=== PATIENT | male | born 1970 | race Caucasian/White ===

== ENCOUNTER → 2016-11-29 | Outpatient (CLI) | payer OTHER ==
--- NOTE | 2016-11-29 17:28 | XR ---
EXAMINATION TYPE: XR abdomen 2V DATE OF EXAM: 11/29/2016 5:12 PM COMPARISON: NONE HISTORY: Pain TECHNIQUE: Single supine KUB image of the abdomen is obtained FINDINGS: Small bowel demonstrates no evidence for dilatation or air fluid levels. Gas and fecal material is seen in non-distended colon. No convincing evidence for pneumoperitoneum. No unusual calcifications. The lung bases are clear. The osseous structures are intact. IMPRESSION: 1. Overall nonobstructive bowel gas pattern.
--- NOTE | 2016-11-29 17:30 | XR ---
EXAMINATION TYPE: XR chest 2V DATE OF EXAM: 11/29/2016 5:12 PM COMPARISON: NONE HISTORY: Chest pain TECHNIQUE: Frontal and lateral views of the chest are obtained. FINDINGS: There is no focal air space opacity. No evidence for pnuemothorax.No pleural effusion. The cardiac silhouette size is within normal limits. The osseous structures are grossly intact. IMPRESSION: 1. No acute cardiopulmonary process.
== END | disposition home or self-care (01) ==
LOC: RADXRMAIN 16:47
PROVIDERS: ATTEND Emergency Medicine
DX: K46.9 Unspecified abdominal hernia without obstruction or gangrene (principal); R06.02 Shortness of breath
CPT/HCPCS: 71020; 74020

== ENCOUNTER → 2016-12-22 | Outpatient (CLI) | payer OTHER ==
--- NOTE | 2016-12-22 14:50 | CT ---
EXAMINATION TYPE: CT abdomen pelvis w con DATE OF EXAM: 12/22/2016 COMPARISON: NONE HISTORY: Ventral hernia per order. Umbilical hernia per patient. CT DLP: 1822 mGycm, Automated Exposure Control for Dose Reduction was Utilized. CONTRAST: CT scan of the abdomen and pelvis is performed with oral and with IV Contrast, patient injected with 100 mL of Omnipaque 300. FINDINGS: LUNG BASES: No significant abnormality is appreciated. LIVER/GB: Liver is diffusely low dense consistent with diffuse fatty infiltration. PANCREAS: No significant abnormality is seen. SPLEEN: No significant abnormality is seen. ADRENALS: No significant abnormality is seen. KIDNEYS: No significant abnormality is seen. BOWEL: Some diverticula in the distal colon are present. No acute diverticulitis is seen. PROSTATE/SEMINAL VESICLES: Left-sided pelvic phlebolith is noted. LYMPH NODES: No greater than 1cm abdominal or pelvic lymph nodes are appreciated. There are slightly prominent but subcentimeter lymph nodes scattered throughout the retroperitoneum. OSSEOUS STRUCTURES: There is moderate to severe disc space narrowing with vacuum disc phenomenon L4-L 5 level. There is slight grade 1 retrolisthesis of L5 on S1. There is moderate disc space narrowing a nd vacuum disc phenomenon L5-S1 level. OTHER: There is small fat-containing umbilical hernia on axial image 59. No additional hernia is evid ent. IMPRESSION: Small fat-containing umbilical hernia.
== END | disposition home or self-care (01) ==
LOC: RADCTMAIN 12:11
PROVIDERS: ATTEND Surgery
DX: K42.9 Umbilical hernia without obstruction or gangrene (principal)
CPT/HCPCS: 74177; Q9967

== ENCOUNTER → 2017-01-10 | Day surgery (SDC) | payer OTHER ==
[2017-01-09 11:49] VITALS: BMI 34.0
[~2017-01-10] MED LIST: BUPIVACAIN-EPI 0.5%-1:200,000 30 ML VIAL SQ ONE; DEXAMETHASONE SOD PHOSPHATE 10 MG/ML 1 ML VIAL IV ONE; GLYCOPYRROLATE 0.2 MG/ML 2 ML VIAL ONE; HEPARIN SODIUM,PORCINE 5,000 UNIT/ML 1 ML VIAL SQ ONE; KETOROLAC 30 MG/ML 1 ML VIAL ONE; LACTATED RINGERS 1,000 ML IV ONE; LACTATED RINGERS 1,000 ML IV SCH; LIDOCAINE 1% 20 ML VIAL (10MG/ML) FOR IV START INTRADERMA PRN; LIDOCAINE 1% INJ 10MG/ML (20 ML MDV) ONE; MIDAZOLAM 2 MG/2 ML VIAL IV PRN; MIDAZOLAM 2 MG/2 ML VIAL ONE; NEOSTIGMINE 1 MG/ML 10 ML VIAL ONE; ONDANSETRON 4 MG/2 ML VIAL IVP ONE; PROPOFOL 10 MG/ML 20 ML VIAL IV ONE; ROCURONIUM BROMIDE 10 MG/ML 10 ML VIAL IV ONE; SCOPOLAMINE 1.5MG/72HR PATCH TRANSDERM ONE; SUCCINYLCHOLINE CHLORIDE VIAL 200 MG/10 ML VIAL IV ONE; fentaNYL (PF) 50 MCG/ML 2 ML AMP ONE
--- NOTE | 2017-01-10 14:38 | P.GSHP ---
History of Present Illness H&P Date: 01/10/17 Chief Complaint: Umbilical hernia Is a 46-year-old male who presents today for laparoscopic robotic system repair hernia. Patient has developed pain at his umbilicus. He underwent CAT scan which shows a small umbilical hernia. Past Medical History Past Medical History: No Reported History Additional Past Medical History / Comment(s): UMBILICAL HERNIA History of Any Multi-Drug Resistant Organisms: None Reported Past Surgical History: No Surgical Hx Reported Additional Past Anesthesia/Blood Transfusion Reaction / Comment(s): HAS NEVER RECEIVED ANESTHESIA.,. PTS SON HAD DIFFICULTY WAKING UP AND WAS AGGRESIVE . Past Psychological History: No Psychological Hx Reported Smoking Status: Never smoker Past Alcohol Use History: Occasional Past Drug Use History: None Reported - Past Family History Mother Family Medical History: Cancer Additional Family Medical History / Comment(s): BREAST CANCER Father Family Medical History: Cancer Additional Family Medical History / Comment(s): PROSTATE CANCER Sister(s) Family Medical History: Cancer Additional Family Medical History / Comment(s): 1 SISTER PASSED WITH OVARIAN CANCER. 1 SISTER HAD BREAST CANCER. Medications and Allergies Home Medications Medication Instructions Recorded Confirmed Type No Known Home Medications [No 01/09/17 01/10/17 History Known Home Medications] Allergies Allergy/AdvReac Type Severity Reaction Status Date / Time amoxicillin Allergy Unknown Unknown Verified 01/10/17 14:01 Childhood Penicillins Allergy Unknown Unknown Verified 01/10/17 14:01 Childhood Surgical - Exam Vital Signs Temp Pulse Resp BP Pulse Ox 98.8 F 83 16 146/92 98 01/10/17 14:07 01/10/17 14:07 01/10/17 14:07 01/10/17 14:07 01/10/17 14:07 - General well developed, no distress - Eyes PERRL - ENT normal pinna - Neck no masses - Respiratory normal expansion - Cardiovascular Rhythm: regular - Abdomen Abdomen: soft, non tender Hernia: umbilical (Small local hernia. Patient has diastases recti muscles.) Assessment and Plan Plan: Umbilical hernia. We'll perform laparoscopic robotic assistance repair.
[2017-01-10] MEDS: ceFAZolin 3 GM in SODIUM CHLORIDE 0.9% 100 ML IVPB ONE ×2 (15:01→15:14)
--- NOTE | 2017-01-10 16:10 | P.OP ---
Date of Procedure: 01/10/17 Preoperative Diagnosis: Umbilical hernia Postoperative Diagnosis: Umbilical hernia, incarcerated fat Procedure(s) Performed: Laparoscopic robotic-assisted repair of incarcerated umbilical hernia Implants: Anesthesia: ITAA Surgeon: Macho Blanco Estimated Blood Loss (ml): 5 Pathology: other (Incarcerated fat) Condition: stable Disposition: PACU Indications for Procedure: Operative Findings: Description of Procedure: The patient's placed on the operating table in the supine position. He received general anesthesia. His abdomen was prepped and draped usual fashion. The skin incision sites were anesthetized 1% local Xylocaine. Using a 5 mm optical trocar peritoneal cavity is entered in the left quadrant. After adequate insufflation the laparoscope placed back peritoneal cavity. Next a 8 mm robotic trochars placed in the left lower quadrant and then a 12 mm trochars placed left lateral position and another 8 mm trocar was placed in the initial 5 mm trocar site. The patient's placed in the head up left side up position. And then the umbilical hernia was visualized. The patient was docked to the robot. Using the hook cautery the incarcerated fat was reduced from the hernia. And then the fascial defect was closed using oh the lock suture. The hernia repair was then buttressed using a ventral light ST mesh and this was secured with 2 OV lock suture. The patient was undocked the robot. The views were retrieved. And then the incarcerated fat was removed and sent to pathology. The 12 mm trocar site was closed with 0 Ethibond suture. Skin was closed with interrupted 3-0 Monocryl suture. Dermabond was applied. Patient tolerated the procedure well and was will was sent to recovery in stable condition.
[2017-01-10 16:22] VITALS: TEMP 97.2
[2017-01-10] MEDS: HYDROmorphone 1 MG/ML 1 ML SYRINGE IVP PRN ×2 (16:25→16:30)
[2017-01-10 16:54] VITALS: RESP 18
[2017-01-10 17:23] VITALS: BP 114/67; PULSE 72
== END | disposition home or self-care (01) ==
LOC: OR 13:33
PROVIDERS: ATTEND Surgery
DX: K42.0 Umbilical hernia with obstruction, without gangrene (principal); I10 Essential (primary) hypertension; E66.9 Obesity, unspecified; Z88.1 Allergy status to other antibiotic agents; Z88.0 Allergy status to penicillin
CPT/HCPCS: 49653; C1781; J2250; J0330; J1644; J1100; J2710; J0690; J2405; J2001; J3010; J1885; J1170; J2704; 88302

== ENCOUNTER → 2017-02-20 | Outpatient (CLI) | payer OTHER ==
--- NOTE | 2017-02-21 08:44 | CT ---
EXAMINATION TYPE: CT abdomen pelvis w con DATE OF EXAM: 02/20/2017 COMPARISON: Prior CT abdomen pelvis 12/22/2016 HISTORY: Left sided pain for 1 week. Hernia repair in december 2016 CT DLP: 2097.7 mGycm Automated exposure control for dose reduction was used. TECHNIQUE: Helical acquisition of images from the lung bases through the pelvis have been completed. CONTRAST: Performed with Oral Contrast and with IV Contrast, patient injected with 100 mL of Omnipaque 300. FINDINGS: At the site of the previously identified umbilical hernia there is some inflammatory change , fat-containing hernia is not identified with certainty at this level. LUNG BASES: Strand-like densities may reflect atelectasis in the right lower lobe, no pleural or vince cardial effusion. AORTA: No significant abnormality is appreciated. LIVER/GB: Liver shows low attenuation likely due to hepatic steatosis. Focal fatty sparing present ad jacent to the gallbladder, the gallbladder is unremarkable. PANCREAS: No significant abnormality is seen. SPLEEN: No significant abnormality is seen. ADRENALS: No significant abnormality is seen. KIDNEYS: No significant abnormality is seen. REPRODUCTIVE ORGANS: Some calcification associated with the prostate BOWEL: No significant abnormality is seen. FREE AIR: No Free Air visible. ASCITES: None visible. PELVIC ADENOPATHY: None visualized. RETROPERITONEAL ADENOPATHY: No Retroperitoneal Adenopathy visible. URINARY BLADDER: No significant abnormality is seen. OSSEOUS STRUCTURES: Degenerative disc changes are present in the visualized spine. 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 IMPRESSION: FINDINGS AT THE LEVEL OF THE UMBILICUS DESCRIBED, CORRELATE FOR POSSIBLE INTERVAL INTERVENTION. TH ERE IS LIKELY SOME LOCAL INFLAMMATORY CHANGE.
== END | disposition home or self-care (01) ==
LOC: RADCTMAIN 18:02
PROVIDERS: ATTEND Surgery
DX: R10.84 Generalized abdominal pain (principal)
CPT/HCPCS: 74177; Q9967